=== PATIENT | male | born 1980 | race Caucasian/White ===

== ENCOUNTER 2017-06-15 12:19 | Emergency (ER) | payer OTHER ==
[2017-06-15 12:31] VITALS: RESP 16
[2017-06-15] MEDS ORDERED: clonazePAM 1 MG TAB PO ONE (12:51)
--- NOTE | 2017-06-15 13:29 | EDPHY ---
H & P Stated Complaint: SEIZURE, HISTORY OF EPILEPSY. STRUCK BACK OF HEAD. 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 He reports compliance with trial apple 600 mg twice daily however he did miss a dose or 2 while briefly in [facility] Thursday night,3 days prior to this visit. He reports that he was at home earlier today and felt impending generalized tonic-clonic seizure and then woke up on the floor having struck his head he thinks against the desk on the way down-carpeted floor. After regaining consciousness he called a neighbor friend who brought him in by private vehicle for evaluation. The patient reports that he feels fatigued since the episode. He did not take his Klonopin 2 mg that usually takes twice a day this morning. He reports a moderate generalized headache and reports that he has struck the occiput of his head against the desk. He states that his headache is 6/10 intensity. He did bite his tongue but states that the injury is mild to the right posterior tongue. Denies any other complaints at this time. ROS: No recent fevers or chills. No other constitutional symptoms except for the fatigue HEENT: No facial injuries. No significant pain from the tongue by states this is mild. Pulmonary: No shortness of breath Cardiovascular: No chest pain GI: No abdominal pain. : No bowel or bladder incontinence Integumentary: No lacerations or abrasions Neuro: No focal numbness he does have tingling bilateral hands and feet that he has states he often has after having had a generalized seizure. No other symptoms. No focal weakness. 10 point ROS is otherwise negative Source: Patient, Other (The patient was driven in by a neighborhood friend by private vehicle who also provides history.) Exam Limitations: No limitations - Medical/Surgical History Hx Asthma: No Hx Chronic Respiratory Disease: No Hx Diabetes: No Hx Cardiac Disease: No Hx Renal Disease: No Hx Cirrhosis: No Hx Alcoholism: No Hx HIV/AIDS: No Hx Splenectomy or Spleen Trauma: No Other PMH: tbi X2, EPILEPSY - Family History Significant Family History: No pertinent family hx - Social History Smoking Status: Current every day smoker Alcohol Use: None Drug Use: Marijuana Additional Social History: The patient reports that he grows marijuana his backyard uses it for treatment of his seizures and explains that he was arrested for growing marijuana and plain site was out on [place] after spending part of Thursday night in [facility]. - Physical Exam Exam: Physical exam: Vital signs are normal General: Patient is in no acute distress. HEENT: Patient has mild occipital tenderness but no significant hematoma, laceration or abrasion. Nose atraumatic. Ears: Clear bilaterally with no hemotympanum. Oropharynx: No dental trauma or malocclusion. No intraoral lacerations except for superficial abrasion/nonbleeding lack well-approximated to the right posterior tongue Eyes: Pupils are equal and reactive to light. Extraocular motions are intact. Optic fundi: Clear with no papilledema or hemorrhage. Neck: Trachea is midline with no stridor. The patient has no midline neck tenderness and retains a full range of motion without increase in pain. Lungs: Clear to auscultation bilaterally Cardiac: Regular rate and rhythm no murmur gallop or rub. Chest: Nontender. Abdomen: Soft nontender no organomegaly Back: Nontender Extremities: Atraumatic Neuro: GCS of 15. Cranial nerves II through XII intact. Cerebellar exam is normal as judged by symmetric rapid hand movements bilaterally. No pronator drift. No sensory or motor deficits are appreciated. Initial differential diagnosis: Generalized seizure versus fall with concussion and brief LOC or combination of both. Constitutional: Initial Vital Signs Temperature (C) 36.5 C 06/15/17 12:28 Heart Rate 80 06/15/17 12:28 Respiratory Rate 16 06/15/17 12:28 Blood Pressure 138/97 H 06/15/17 12:28 O2 Sat (%) 97 06/15/17 12:28 O2 Delivery Mode Room Air Allergies/Adverse Reactions: No Known Allergies Allergy (Verified 06/15/17 12:20) Home Medications: Medication Instructions Recorded Ibuprofen [Motrin (*)] 600 mg PO Q6 PRN #30 tab 06/15/17 OXcarbazepine [Trileptal 300mg (*)] 06/15/17 clonazePAM [Klonopin (*)] 06/15/17 Medical Decision Making ED Course/Re-evaluation: The patient adamantly declined any blood work stating fear of needles. Treated him with a 2 mg dose of clonazepam since he missed his morning dose and advised that he take an extra 600 mg of dose of Trileptal today and continue the same dose he was on with plan to follow up with Neurology. Patient understands that without workup we cannot rule out potential electrolyte abnormalities or low antiepileptic medication levels that may contribute to his seizures. He understands and accepts this risk. In terms of his head injury I think that this is mild without any red flag findings. Think that he has a mild concussion. No clinical evidence to suggest bony injury, [employer] infection or bleed or other complicating factors at this time. - Data Points Medications Given: Discontinued Medications Clonazepam (Klonopin) 2 mg PO EDNOW ONE Stop: 06/15/17 12:52 Last Admin: 06/15/17 12:59 Dose: 2 mg Departure - Departure Disposition: Home, Routine, Self-Care Clinical Impression: Seizure Condition: Good Instructions: Head Injury (ED), Epilepsy (ED) Additional Instructions: Diagnoses: 1. Generalized tonoclonic seizure 2. Head injury Plan: Ibuprofen Tylenol for headache if needed Take an extra dose of ear try lap dull-extra 600 mg today. Continue your clonazepam. Call your primary care physician for a follow-up appointment Call Dr. marquis-neurologist for a follow-up appointment Return if he develops unbearable headache, vomiting more than once or other concerns. Referrals: EAN PARISI,Kaushik [Primary Care Provider] - As per Instructions Everton Yeager MD [Medical Doctor] - As per Instructions Prescriptions: Ibuprofen [Motrin (*)] 600 mg PO Q6 PRN #30 tab PRN Reason: Pain
[2017-06-15 13:59] VITALS: BP 125/105; PULSE 73; TEMP 97.9; O2SAT 96
== END 2017-06-15 13:59 | disposition home or self-care (01) ==
LOC: CED 12:19
DX: G40.909 Epilepsy, unspecified, not intractable, without status epilepticus (principal); F17.200 Nicotine dependence, unspecified, uncomplicated

== ENCOUNTER 2018-12-01 09:37 | Emergency (ER) | payer OTHER ==
--- NOTE | 2018-12-01 10:29 | EDPHY ---
H & P Time Seen by Provider: 12/01/18 09:58 HPI/ROS: CHIEF COMPLAINT: Cough runny nose History by patient HISTORY OF PRESENT ILLNESS: 38-year-old man with a history of traumatic brain injury and seizure presents complaining of 2 and half days of cough, sinus pressure and congestion, runny nose, cough is occasionally productive of sputum. He has had diffuse body aches and generalized weakness and chills. He denies fever. There has been no nausea vomiting or diarrhea. He has been taking hot drinks with honey. He does smoke, but says he has cut down because of the recent cough. He has no known ill contacts. He did get a flu shot this year. He is concerned that he has a sinus infection and needs antibiotics.. REVIEW OF SYSTEMS: As in HPI, and all other systems reviewed and are negative Smoking Status: Current every day smoker Physical Exam: General Appearance: Alert and no distress. Head: normocephalic, atraumatic, no sinus tenderness Eyes: Pupils equal and round no injection. OP: mucus membranes moist, no tonsillar enlargement, minimal erythema, no exudates Neck: no meningismus, no cervical nodes, no submandibular nodes Respiratory: Chest is nontender, lungs are clear to auscultation. No wheezes, rales, rhonchi, positive expiratory wheeze with cough Cardiac: regular rate and rhythm. S1, S2, no murmurs, gallops, rubs appreciated. Gastrointestinal: Abdomen is soft and nontender, no masses, bowel sounds normal. Musculoskeletal: Neck is supple and nontender. Extremities have full range of motion and are nontender. Skin: No rashes or lesions. Constitutional: Initial Vital Signs Temperature (C) 36.6 C 12/01/18 09:50 Heart Rate 73 12/01/18 09:50 Respiratory Rate 18 12/01/18 09:50 Blood Pressure 137/70 H 12/01/18 09:50 O2 Sat (%) 94 12/01/18 09:50 O2 Delivery Mode Room Air Allergies/Adverse Reactions: No Known Allergies Allergy (Verified 12/01/18 09:50) Home Medications: Medication Instructions Recorded Ibuprofen [Motrin (*)] 600 mg PO Q6 PRN #30 tab 06/15/17 OXcarbazepine [Trileptal 300mg (*)] 06/15/17 clonazePAM [Klonopin (*)] 06/15/17 Albuterol [Proventil Inhaler HFA 1 - 2 puffs IH Q4H #1 mdi 12/01/18 (*)] MDM/Departure - [facility] ED Course/Re-evaluation: 38-year-old man presents with URI/influenza like symptoms. Influenza swab was negative. We discussed home care, the fact that there is no current indication for antibiotics, home care and conservative measures and and patient was discharged in stable condition. - Depart Disposition: Home, Routine, Self-Care Clinical Impression: Influenza-like illness Condition: Good Instructions: Viral Syndrome (ED) Additional Instructions: You were seen by Dr. Kavitha Oneal. Use a humidifier in the room where you sleep. Try hot drinks with honey. Take ibuprofen 400-600mg 4 times daily and Tylenol 500-1000mg every 6 hours as needed for fever and/or pain. Try using albuterol inhaler for cough. Stop smoking! Return for any worsening or new concerns. Prescriptions: Albuterol [Proventil Inhaler HFA (*)] 1 - 2 puffs IH Q4H #1 mdi
[2018-12-01 12:24] VITALS: BP 115/68
== END 2018-12-01 11:15 | disposition home or self-care (01) ==
LOC: CED 09:37
DX: R05 Cough (principal); R09.81 Nasal congestion; M79.10 Myalgia, unspecified site; F17.200 Nicotine dependence, unspecified, uncomplicated; Z87.820 Personal history of traumatic brain injury
CPT/HCPCS: 99283-ER

== ENCOUNTER → 2018-12-17 | Outpatient (CLI) | payer OTHER ==
--- NOTE | 2018-12-20 14:58 | CPEEG ---
[f rep st] ELECTROENCEPHALOGRAM DATE OF STUDY: 12/17/2018 DATE OF INTERPRETATION: 12/20/2018 INTERPRETATION: This EEG is normal. There were no potentially epileptogenic abnormalities present i n the awake or drowsy recordings. If clinically indicated, a repeat 4-hour video EEG study may be he lpful to capture sustained sleep. REPORT: This EEG contains 10 Hz alpha activity over the posterior head regions. There was no abnorm al activation at rest, during photic stimulation or hyperventilation. The patient intermittently bec bahman drowsy during the study. There was no abnormal activation during drowsiness or during times of a rousal. /[id number]/MODL
== END ==
LOC: FCPNEURO 09:47
PROVIDERS: ATTEND Psychiatry & Neurology Neurology
DX: G40.909 Epilepsy, unspecified, not intractable, without status epilepticus (principal)

== ENCOUNTER → 2018-12-22 | Outpatient (CLI) | payer OTHER ==
[~2018-12-22] MED LIST: GADOBUTROL 10 ML VIAL IVP ONE
== END ==
LOC: FIMAGING 09:40
PROVIDERS: ATTEND Psychiatry & Neurology Neurology
DX: G40.909 Epilepsy, unspecified, not intractable, without status epilepticus (principal)
CPT/HCPCS: 70553; A9585

== ENCOUNTER 2019-02-27 09:51 | Emergency (ER) | payer OTHER ==
--- NOTE | 2019-02-27 10:02 | EDPHY ---
H & P Stated Complaint: facial injury from seisure Time Seen by Provider: 02/27/19 09:55 HPI/ROS: 39-year-old male with history of traumatic brain injury, seizure disorder presents complaining of seizure last night. Comes in today with complaint of bruising to his right face and concern about having had a seizure. Patient states he does have seizures intermittently despite his medications. He states he has been compliant with his trileptal (oxcarbezepine)> He denies alcohol use or history of alcohol withdrawal seizure. He has been on Klonopin for many year and states he would like to stop taking Klonopin however he admits he did take his regular dose today. He is here with his mother. Review of systems As per HPI General no fever no chills no weakness HEENT no eye pain no eye discharge. No eye redness, no sore throat Respiratory no cough, no shortness of breath Cardiac no chest pain, no peripheral edema GI no abdominal pain, no diarrhea, no constipation, no nausea, no vomiting no flank pain, no hematuria, no dysuria Musculoskeletal positive myalgias, no joint pain Heme no easy bruising, no easy bleeding Endo no polyuria, no polydipsia Skin no rashes, no pruritus Neuro no syncope, no dizziness, no headaches, seizure Source: Patient, Family Exam Limitations: No limitations - Personal History Current Tetanus Diphtheria and Acellular Pertussis (TDAP): Yes - Medical/Surgical History Hx Asthma: No Hx Chronic Respiratory Disease: No Hx Diabetes: No Hx Cardiac Disease: No Hx Renal Disease: No Hx Cirrhosis: No Hx Alcoholism: No Hx HIV/AIDS: No Hx Splenectomy or Spleen Trauma: No Other PMH: tbi X2, EPILEPSY - Family History Significant Family History: No pertinent family hx - Social History Smoking Status: Current every day smoker Alcohol Use: Occasionally Drug Use: None - Physical Exam Exam: 39-year-old male alert and oriented in no acute distress, nontoxic appearance, afebrile Large ecchymosis right periorbital and right maxilla Normocephalic Extraocular muscles intact, anicteric Nares-no bleeding no septal hematoma TMs no hemotympanum 'oropharynx-no trismus, poor dentition, no wounds to tongue Neck supple Lungs clear to auscultation bilaterally Heart regular rate and rhythm Abdomen NABS Extremities no cyanosis clubbing edema Skin no rash other than abrasions to right face Neuro alert and oriented, no motor or sensory weakness, cranial nerves intact Constitutional: Initial Vital Signs Temperature (C) 36.9 C 02/27/19 09:54 Heart Rate 87 02/27/19 09:54 Respiratory Rate 18 02/27/19 09:54 Blood Pressure 120/82 H 02/27/19 09:54 O2 Sat (%) 95 02/27/19 09:54 O2 Delivery Mode Room Air O2 (L/minute) 2 Allergies/Adverse Reactions: No Known Allergies Allergy (Verified 02/27/19 10:01) Home Medications: Medication Instructions Recorded Ibuprofen [Motrin (*)] 600 mg PO Q6 PRN #30 tab 06/15/17 OXcarbazepine [Trileptal 300mg (*)] 06/15/17 clonazePAM [Klonopin (*)] 06/15/17 Albuterol [Proventil Inhaler HFA 1 - 2 puffs IH Q4H #1 mdi 12/01/18 (*)] Medical Decision Making - Diagnostics Imaging Results: Imaging Impressions Face CT 02/27/19 10:02 Impression: 1. No acute facial fracture. 2. Nondisplaced nasal fracture, unchanged since 2012. 3. Dental caries. Findings discussed with emergency department physician, Susannah Madera MD on February 27, 2019 at 10:[address] 02/27/19 10:04 Impression: 1. Right frontal and right periorbital hematomas. 2. Old nondisplaced nasal fracture. 3. No acute fracture or evidence of acute intracranial injury. Findings discussed with emergency department physician, Susannah Madera MD on February 27, 2019 at 10:45 a.m. ED Course/Re-evaluation: Patient seen and evaluated for seizure and right facial trauma CT maxillofacial negative for fracture positive extensive soft tissue swelling positive old nasal fracture CT brain negative for epidural negative subdural IV established, lab sent Electrolytes within normal limits Magnesium mildly elevated 2.8 Patient appeared clinically dehydrated given 2 L normal saline Impression Seizure disorder Right periorbital and right maxillary facial contusions without fracture Plan DC home Continue current seizure medicine Follow-up with neurologist and/or primary care Differential Diagnosis: Differential diagnosis considered but not limited to Seizure, noncompliance with medicines, benzodiazepine withdrawal, alcohol withdrawal, facial trauma, rule out facial fracture, rule out orbital fracture - Data Points Laboratory Results: 02/27/19 02/27/19 02/27/19 10:17 10:13 10:10 POC Sodium 136 mEq/L mEq/L (135-145) POC Potassium 3.6 mEq/L mEq/L (3.3-5.0) POC Chloride 98.0 mEq/L mEq/L (97-110) POC Total CO2 24 mEq/L mEq/L (22-31) POC BUN 11 mg/dL mg/dL (7-23) POC Creatinine 1.2 mg/dL mg/dL (0.7-1.3) POC Glucose 103 mg/dL H mg/dL (70-100) POC Lactic Acid Samuel 1.1 mmol/L mmol/L (0.7-2.1) POC Calcium 9.9 mg/dL mg/dL (8.5-10.4) Magnesium 2.8 mg/dL H mg/dL (1.6-2.3) Medications Given: Discontinued Medications Acetaminophen (Tylenol) 1,000 mg PO EDNOW ONE Stop: 02/27/19 10:42 Last Admin: 02/27/19 10:47 Dose: 1,000 mg Diazepam (Valium 5 Mg Prepack#4) 1 btl TAKEHOME EDNOW ONE Stop: 02/27/19 12:10 Last Admin: 02/27/19 12:48 Dose: 1 btl Sodium Chloride (Ns) 1,000 mls @ 0 mls/hr IV ONCE ONE PRN Reason: Wide Open Stop: 02/27/19 10:04 Last Admin: 02/27/19 10:24 Dose: 1,000 mls Sodium Chloride (Ns) 1,000 mls @ 0 mls/hr IV ONCE ONE PRN Reason: Wide Open Stop: 02/27/19 11:31 Last Admin: 02/27/19 11:36 Dose: 1,000 mls Ketorolac Tromethamine (Toradol) 15 mg IVP EDNOW ONE Stop: 02/27/19 10:42 Last Admin: 02/27/19 10:49 Dose: 15 mg Lorazepam (Ativan Injection) 0.5 mg IVP EDNOW ONE Stop: 02/27/19 10:06 Last Admin: 02/27/19 10:24 Dose: Not Given Point of Care Test Results: CBC CBC Collection Date 02/27/19 CBC Collection Time 10:10 WBC 11.86 RBC 5.34 HGB 17.2 HCT 48.3 PLT 334 Neut # 8.86 Neut 74.7 LYMPH # 1.78 LYMPH 15.0 MCV 90.4 Chemistry 02/27/19 10:13 POC Sodium 136 mEq/L mEq/L (135-145) POC Potassium 3.6 mEq/L mEq/L (3.3-5.0) POC Chloride 98.0 mEq/L mEq/L (97-110) POC Total CO2 24 mEq/L mEq/L (22-31) POC BUN 11 mg/dL mg/dL (7-23) POC Creatinine 1.2 mg/dL mg/dL (0.7-1.3) POC Glucose 103 mg/dL H mg/dL (70-100) POC Calcium 9.9 mg/dL mg/dL (8.5-10.4) Blood Gas/Lactic Acid-Venous 02/27/19 10:17 POC Lactic Acid Samuel 1.1 mmol/L mmol/L (0.7-2.1) Departure - Departure Disposition: Home, Routine, Self-Care Clinical Impression: Seizure, Traumatic hematoma of face, Seizure disorder Condition: Good Instructions: Recurrent Seizures in Adults (ED), Facial Contusion (ED) Referrals: NONE *PRIMARY CARE P,. [Primary Care Provider] - As per Instructions
[2019-02-27] MEDS ORDERED: NS 1,000 ML IV ONE ×2 (10:03→11:30)
[2019-02-27] MEDS ORDERED: LORazepam 2 MG/ML INJ IVP ONE (10:05)
[2019-02-27] MEDS ORDERED: KETOROLAC 15 MG/1 ML SDV IVP ONE (10:41)
[2019-02-27] MEDS ORDERED: ACETAMINOPHEN 500 MG TAB PO ONE (10:41)
[2019-02-27] MEDS ORDERED: DIAZEPAM 5 MG PREPACK#4 BTL TAKEHOME ONE (12:09)
[2019-02-27 12:53] VITALS: BP 109/79
== END 2019-02-27 13:03 | disposition home or self-care (01) ==
LOC: CED 09:51
DX: S05.11XA Contusion of eyeball and orbital tissues, right eye, initial encounter (principal); S00.83XA Contusion of other part of head, initial encounter; G40.909 Epilepsy, unspecified, not intractable, without status epilepticus; W22.8XXA Striking against or struck by other objects, initial encounter
CPT/HCPCS: 70450; 70486; 96361; 96374; 99285; J1885; J2060; 80048-ER; 83605-ER; 85025-QW-ER